=== PATIENT | male | born 1955 ===

== ENCOUNTER → 2018-12-23 | Outpatient (CLI) | payer MEDICARE ==
[~2018-12-23] MED LIST: ASPIRIN 325 MG TABLET ONE; CLOPIDOGREL BISULFATE 75 MG TABLET ONE; DIAZEPAM 10 MG TABLET. ONE; EPTIFIBATIDE BOLUS 2,000 MCG/ML 10ML VIAL. IV ONE; HEPARIN for IV BOLUS 10,000 UNIT/10 ML VIAL. ONE; HEPARIN for SUB-Q USE 5,000 UNIT/ML VIAL. SQ ONE; IODIXANOL 270 MG/ML 100 ML VIAL. ONE; IOHEXOL 350 MG/ML 100 ML VIAL. ONE; IV NORMAL SALINE 1000ML BAG 1,000 ML ONE; LIDOCAINE 1%/EPI 1:100,000 20 ML VIAL. ONE; MIDAZOLAM HCL/PF 2 MG/2 ML VIAL. ONE; diphenhydrAMINE 50 MG/ML VIAL ONE; fentaNYL PF VIAL 100 MCG/2 ML VIAL ONE; hydrALAZINE 20 MG/ML VIAL. ONE
--- NOTE | 2018-12-23 19:45 | PCVCINTER ---
EXAM: 1. RIGHT COMMON ILIAC ARTERY STENT PLACEMENT. 2. RIGHT POPLITEAL ARTERY ATHERECTOMY AND STENT PLACEMENT. 3. SECONDARY THROMBECTOMY RIGHT POPLITEAL ARTERY. 4. DRUG COATED BALLOON ANGIOPLASTY RIGHT POPLITEAL ARTERY. INDICATION: Peripheral arterial disease. Coronary artery disease. Right leg pain. Hypertension. Renal atherosclerosis. No prior catheter based angiographic study is available. A full diagnostic angiogram study is performed today and the decision to intervene is based on this diagnostic study. PROCEDURE: Procedure and risks of angiography and intervention including limb loss, stroke, and were discussed with the patient's family and consent obtained. The patient's left groin was prepped in the normal sterile fashion. IV conscious sedation was used throughout procedure with appropriate monitoring from 10:30 AM through 11:45 AM. Ultrasound was used to interrogate the left groin and showed the left common femoral artery to be patent. A permanent spot film was obtained. Under ultrasound guidance access into the left common femoral artery was obtained and a 6 [place]ese crossover sheath was placed via the left groin to the level of the right common femoral artery. Atherectomy of the right popliteal artery was performed with 2.0 mm [employer] laser atherectomy catheter in the standard fashion. Following atherectomy small areas of thrombus were observed and because of this secondary thrombectomy throughout the right popliteal artery was carried out with mechanical suction thrombectomy catheter in the standard fashion. Minimal debris was removed. Following this drug coated balloon angioplasty of the right popliteal artery was carried out with a 4 x 120 [employer] catheter. Stent placement across the areas of high-grade stenosis in the right popliteal artery was carried out with a 5 x 100 [place] [place] stent with subsequent dilatation to 5.0 mm. Stent placement across the areas of high-grade stenosis in the right common iliac artery was carried out with a 10 x 60 Smart control stent with subsequent dilatation to 9.0 mm. Follow-up angiogram was performed. Catheters and wires removed. Sheath was removed and hemostasis obtained using the FISH device. No immediate complications. FINDINGS: Right popliteal artery: Following procedure as above vessel shows good patency. Right common iliac artery: Following procedure as above vessel shows good patency. IMPRESSION: Areas of significant stenosis in the right common iliac artery and popliteal artery were treated as above with good patency restored. LOC:OFFICE
== END | disposition home or self-care (01) ==
LOC: PCVCINTER 09:31
PROVIDERS: ATTEND Nuclear Medicine Nuclear Cardiology
DX: I70.211 Atherosclerosis of native arteries of extremities with intermittent claudication, right leg (principal); I70.1 Atherosclerosis of renal artery; I25.10 Atherosclerotic heart disease of native coronary artery without angina pectoris; I10 Essential (primary) hypertension; Z87.891 Personal history of nicotine dependence; Z88.6 Allergy status to analgesic agent; Z88.8 Allergy status to other drugs, medicaments and biological substances; Z79.899 Other long term (current) drug therapy; G89.4 Chronic pain syndrome; E66.3 Overweight; Z68.25 Body mass index [BMI] 25.0-25.9, adult
CPT/HCPCS: 37186; 37221; 37227; 76937; 99152; 99153; C1725; C1751; C1757; C1760; C1769; C1876; C1885; C1887; C1894; C2623; J1200; J1327; J1644; J2250; J3010; J3490; J7030; Q9967; J0360

== ENCOUNTER → 2019-08-10 | Outpatient (CLI) | payer MEDICARE ==
--- NOTE | 2019-08-10 10:21 | PCVCIMAG ---
EXAM: BILATERAL CAROTID DUPLEX INDICATION: Carotid Occlusive Disease. FINDINGS: Doppler Measurements (centimeters per second): RIGHT: Peak CCA-75, Peak ECA-81, Diastolic ICA-17, Peak ICA-83, ICA/CCA Ratio-0.7. LEFT: Peak CCA-84, Peak ECA-112, Diastolic ICA-18, Peak ICA-93, ICA/CCA Ratio-0.7. RIGHT CAROTID: The carotid bulb has mild plaque. The proximal internal carotid artery shows <40% stenosis. The common carotid artery shows no significant stenosis. The external carotid artery shows no significant stenosis. LEFT CAROTID: The carotid bulb has mild plaque. The proximal internal carotid artery shows <40% stenosis. The common carotid artery shows no significant stenosis. The external carotid artery shows no significant stenosis. Antegrade flow in both vertebral arteries. IMPRESSION: <40% stenosis of the right internal carotid artery with mild plaque. <40% stenosis of the left internal carotid artery with mild plaque. LOC:[place] [id number]
--- NOTE | 2019-08-10 10:30 | PCVCIMAG ---
EXAM: BILATERAL LOWER EXTREMITY ARTERIAL DUPLEX INDICATION: Peripheral Arterial Disease. Leg pain. FINDINGS: Right Leg: Satisfactory arterial waveforms throughout the common/profunda/superficial femoral, popliteal, anterior tibial, peroneal, and posterior tibial arteries. No flow limiting stenosis seen. Previous right popliteal artery stent maintaining good patency. Left Leg: Satisfactory arterial waveforms throughout the common/profunda/superficial femoral, popliteal, anterior tibial, peroneal, and posterior tibial arteries. No flow limiting stenosis seen. Previous distal left superficial femoral artery stent and left popliteal stent maintaining good patency. IMPRESSION: No flow limiting stenosis in the right lower extremity. Previous right popliteal artery stent maintaining good patency. No flow limiting stenosis in the left lower extremity. Previous distal left superficial femoral artery and popliteal artery stent maintaining good patency. LOC:[id number]
== END | disposition home or self-care (01) ==
LOC: PCVCIMAG 09:00
PROVIDERS: ATTEND Nuclear Medicine Nuclear Cardiology
DX: I65.23 Occlusion and stenosis of bilateral carotid arteries (principal); I73.9 Peripheral vascular disease, unspecified; I77.9 Disorder of arteries and arterioles, unspecified; I10 Essential (primary) hypertension; G82.20 Paraplegia, unspecified; I25.10 Atherosclerotic heart disease of native coronary artery without angina pectoris; S24.103A Unspecified injury at T7-T10 level of thoracic spinal cord, initial encounter; Z87.891 Personal history of nicotine dependence; X58.XXXA Exposure to other specified factors, initial encounter; Y93.89 Activity, other specified; Y92.89 Other specified places as the place of occurrence of the external cause; Y99.8 Other external cause status
CPT/HCPCS: 93880; 93925; G0463